=== PATIENT | male | born 1985 | race Caucasian/White ===

== ENCOUNTER 2016-09-21 09:10 | Emergency (ER) | payer SELFPAY | END 2016-09-21 09:16 | disposition home or self-care (01) | LOC: CED 09:10 | DX: L02.212 Cutaneous abscess of back [any part, except buttock and flank] (principal); F31.9 Bipolar disorder, unspecified; F17.210 Nicotine dependence, cigarettes, uncomplicated | CPT/HCPCS: 99282 ==

== ENCOUNTER 2016-09-21 12:24 | Emergency (ER) | payer OTHER | END 2016-09-21 12:43 | disposition home or self-care (01) | LOC: CFTX 12:24 | DX: L02.212 Cutaneous abscess of back [any part, except buttock and flank] (principal); F31.9 Bipolar disorder, unspecified; F17.210 Nicotine dependence, cigarettes, uncomplicated | CPT/HCPCS: 10060; 99283 ==

== ENCOUNTER → 2016-09-27 23:00 | Emergency (ER) | payer SELFPAY | END | disposition left against medical advice (07) | LOC: CED 23:00 | DX: Z53.21 Procedure and treatment not carried out due to patient leaving prior to being seen by health care provider (principal) ==

== ENCOUNTER 2016-10-01 19:17 | Emergency (ER) | payer SELFPAY | END 2016-10-01 19:20 | disposition home or self-care (01) | LOC: CED 19:17 | DX: Z76.0 Encounter for issue of repeat prescription (principal) | CPT/HCPCS: 99282 ==

== ENCOUNTER 2016-10-20 20:30 | Emergency (ER) | payer OTHER | END 2016-10-23 15:00 | disposition left against medical advice (07) | LOC: CED 20:30 | DX: Z53.21 Procedure and treatment not carried out due to patient leaving prior to being seen by health care provider (principal) ==

== ENCOUNTER 2016-11-07 18:20 | Emergency (ER) | payer OTHER | END 2016-11-07 18:46 | disposition home or self-care (01) | LOC: CFTX 18:20 | DX: S39.012A Strain of muscle, fascia and tendon of lower back, initial encounter (principal); F17.210 Nicotine dependence, cigarettes, uncomplicated; Z88.5 Allergy status to narcotic agent; V49.40XA Driver injured in collision with unspecified motor vehicles in traffic accident, initial encounter; Y92.410 Unspecified street and highway as the place of occurrence of the external cause | CPT/HCPCS: 99283 ==

== ENCOUNTER 2016-11-14 08:45 | Emergency (ER) | payer OTHER ==
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
== END 2016-11-14 11:00 | disposition home or self-care (01) ==
LOC: CFTX 08:45 → CED 08:45 → CFTX 10:38
DX: S33.5XXA Sprain of ligaments of lumbar spine, initial encounter (principal); F31.9 Bipolar disorder, unspecified; F17.210 Nicotine dependence, cigarettes, uncomplicated; Z88.5 Allergy status to narcotic agent; V43.52XA Car driver injured in collision with other type car in traffic accident, initial encounter
CPT/HCPCS: 72100; 72170; 73552; 73590; 99284

== ENCOUNTER 2017-01-08 15:30 | Emergency (ER) | payer OTHER | END 2017-01-08 17:47 | disposition left against medical advice (07) | LOC: CED 15:30 | DX: F41.9 Anxiety disorder, unspecified (principal); Z88.5 Allergy status to narcotic agent | CPT/HCPCS: 99283 ==

== ENCOUNTER 2017-02-11 18:25 | Emergency (ER) | payer OTHER ==
[~2017-02-11] VITALS: Ht 177.8 cm; Wt 68.0 kg
== END 2017-02-11 19:36 | disposition home or self-care (01) ==
LOC: CED 18:25 → CFTX 18:25
DX: L73.9 Follicular disorder, unspecified (principal); Z23 Encounter for immunization; F32.9 Major depressive disorder, single episode, unspecified; Z88.5 Allergy status to narcotic agent; F17.210 Nicotine dependence, cigarettes, uncomplicated; E05.90 Thyrotoxicosis, unspecified without thyrotoxic crisis or storm
CPT/HCPCS: 90471; 90715; 99283

== ENCOUNTER 2017-02-22 16:17 | Emergency (ER) | payer OTHER ==
[~2017-02-22] VITALS: Ht 177.8 cm; Wt 68.0 kg
--- NOTE | ~2017-02-22 | CR127 ---
[facility] A Service of [facility] & [facility] RADIOLOGY TEXT RESULTS PATIENT: AILEEN MOODY LOCATION: [facility] : 83 UNIT #: [id number] AGE: [address]: Camelia Pena SEX: M ORDER DR: [id number] [place] [id number] [facility] [place], [place] [address] [id number] E MR#: [id number] Acc #: [id number] NAME: AILEEN MOODY : 1985 SEX: M STUDY DATE/TIME: 02/22/2017 17:08 UNIT: [facility] ROOM: STUDY DESCRIPTION: CR Foot Complete Min 3 View Rt Attending Physician: Camelia Pena P.A.-C. Ordering Physician: Camelia Pena P.A.-C. Primary Care Physician: Mark Davalos M.D. MEDICAL IMAGING REPORT This report is preliminary unless electronic signature is present EXAM Three views of the right foot. DATE 02/22/2017 HISTORY Right foot pain today with puncture wound to the right great toe with redness and swelling. COMPARISON None FINDINGS There is a questionable hairline nondisplaced fracture involving the proximal and lateral margin of the distal phalanx of the great toe. No joint dislocation. Mild spurring at the medial aspect of the interphalangeal joint of the great toe. What appears to be a nonunited ossification center is seen at the proximal and medial margin of the proximal phalanx of the great toe. This is thought less likely to represent an acute injury. No retained radiopaque foreign body is seen within the soft tissues. IMPRESSION 1. Suspected nondisplaced hairline fracture involving the proximal lateral margin of the distal phalanx of the great toe without dislocation. 2. Mild irregularity at the proximal and medial margin proximal phalanx of the great toe, favored to represent a nonunited ossification center. [facility] A Service of [facility] & [facility] RADIOLOGY TEXT RESULTS PATIENT: AILEEN MOODY LOCATION: [facility] : 83 UNIT #: [id number] AGE: [address]: Camelia Pena SEX: M ORDER DR: Dictated by... Sallie Srinivasan M.D. THIS IS AN ELECTRONICALLY VERIFIED REPORT Sallie Srinivasan M.D. at 02/23/2017 1:54 PM JESI/arin TD: 02/23/2017 07:32 JOB #: [id number] MEDICAL IMAGING REPORT Page 1 of 1 COPY
== END 2017-02-22 18:10 | disposition home or self-care (01) ==
LOC: CFTX 16:17 → CED 16:17 → CFTX 17:25
DX: S92.901A Unspecified fracture of right foot, initial encounter for closed fracture (principal); S90.111A Contusion of right great toe without damage to nail, initial encounter; W22.8XXA Striking against or struck by other objects, initial encounter; Y92.009 Unspecified place in unspecified non-institutional (private) residence as the place of occurrence of the external cause
CPT/HCPCS: 29540; 73630; 99283